=== PATIENT | male | born 1955 | race Caucasian/White ===

== ENCOUNTER 2020-11-03 12:13 | Day surgery (SDC) | payer MEDICAID ==
[~2020-11-03] VITALS: Ht 170.2 cm; Wt 83.0 kg
[2020-11-03] MEDS ORDERED: FENTANYL PF 250 MCG/5ML ONE (13:05)
[2020-11-03] MEDS ORDERED: MIDAZOLAM 1 MG/ML, 2ML ONE (13:05)
[2020-11-03] MEDS ORDERED: NEOSTIGMINE 1 MG/ML, 10ML ONE (13:08)
[2020-11-03] MEDS ORDERED: CEFAZOLIN 1,000 MG ONE (13:08)
[2020-11-03] MEDS ORDERED: ROCURONIUM 10MG/ML,5ML ONE (13:08)
[2020-11-03] MEDS ORDERED: PROPOFOL 10 MG/ML, 20ML ONE (13:08)
[2020-11-03] MEDS ORDERED: GLYCOPYRROLATE 0.2MG/1ML, 5ML ONE (13:08)
[2020-11-03] MEDS ORDERED: NO HOME MEDS PER PT (13:21)
[2020-11-03] MEDS ORDERED: CHLORHEXIDINE 15 ML UDC ONE (13:24)
[2020-11-03] MEDS ORDERED: CHLORHEXIDINE 15 ML UDC PO ONE (13:30)
[2020-11-03] MEDS ORDERED: LACTATED RINGERS 1,000 ML IV SCH (13:30)
[2020-11-03 13:32] VITALS: BP 130/91
[2020-11-03] MEDS ORDERED: HYDROmorphone 1 MG/ML, 1ML INJ IVPush PRN (14:30)
[2020-11-03] MEDS ORDERED: OXYcodone 5 MG/5 ML ORAL.SOL UDC PO PRN (14:30)
[2020-11-03] MEDS ORDERED: MEPERIDINE/PF 25MG/0.5ML IVPush PRN (14:30)
[2020-11-03] MEDS ORDERED: ACETAMINOPHEN 325 MG TABLET PO PRN (14:30)
[2020-11-03] MEDS ORDERED: LABETALOL 5MG/ML, 20ML IV PRN (14:30)
[2020-11-03] MEDS ORDERED: morphine SULFATE 10 MG/ML, 1ML IVPush PRN (14:30)
[2020-11-03] MEDS ORDERED: hydrALAzine 20 MG/ML, 1ML IV PRN (14:30)
[2020-11-03] MEDS ORDERED: ONDANSETRON 2MG/ML, 2ML IVPush PRN (14:30)
[2020-11-03] MEDS ORDERED: BUPIVACAINE/PF 0.5% INFIL ONE (15:14)
[2020-11-03] MEDS ORDERED: FENTANYL PF 100 MCG/2ML ONE ×3 (15:22→16:22)
[2020-11-03] MEDS ORDERED: OXYC1TAB14 PO (16:17)
[2020-11-03] MEDS ORDERED: BUPIVACAINE/PF 0.5% ONE (16:23)
[2020-11-03] MEDS: FENTANYL PF 100 MCG/2ML IV PRN ×2 (16:24→16:29)
[2020-11-03] MEDS ORDERED: MEPERIDINE/PF 25MG/ML,1ML ONE (16:25)
[2020-11-03] MEDS ORDERED: OXYcodone 5 MG/5 ML ORAL.SOL UDC ONE (16:41)
== END 2020-11-03 18:40 | disposition home or self-care (01) ==
LOC: OUT 12:13
PROVIDERS: ATTEND Surgery
DX: K40.91 Unilateral inguinal hernia, without obstruction or gangrene, recurrent (principal); Z20.822 Contact with and (suspected) exposure to COVID-19; Z79.899 Other long term (current) drug therapy; Z82.49 Family history of ischemic heart disease and other diseases of the circulatory system; Z82.3 Family history of stroke
CPT/HCPCS: 49651; 87635; 93005; C1781; J0690; J2175; J2250; J2704; J2710; J3010; J7120; S2900